=== PATIENT | female | born 1970 | race African-American/Black ===

== ENCOUNTER 2023-12-28 04:15 | Day surgery (SDC) | payer OTHER ==
[2023-12-28] MEDS ORDERED: ePHEDrine SULFATE 50 MG/1 ML AMPULE ONE (11:45)
[2023-12-28] MEDS ORDERED: ONDANSETRON 4 MG/2 ML VIAL ONE (11:45)
[2023-12-28] MEDS ORDERED: KETOROLAC TROMETHAMINE 30 MG/1 ML VIAL ONE (11:45)
[2023-12-28] MEDS ORDERED: DEXAMETHASONE SOD PHOSPHATE 4 MG/1 ML VIAL ONE (11:45)
[2023-12-28] MEDS ORDERED: MIDAZOLAM HCL 2 MG/2 ML SINGLE DOSE VIAL ONE (11:45)
[2023-12-28] MEDS ORDERED: LIDOCAINE HCL/PF 2% SDV 5ML VIAL ONE (11:45)
[2023-12-28] MEDS ORDERED: PROPOFOL 20 ML ONE (11:46)
[2023-12-28] MEDS ORDERED: ONDANSETRON 4 MG/2 ML VIAL IVPUSH PRN (12:44)
[2023-12-28] MEDS ORDERED: oxyCODONE HCL 5 MG TABLET PO PRN (12:44)
[2023-12-28] MEDS ORDERED: LACTATED RINGERS SOLUTION 1,000 ML IV SCH ×2 (12:45→14:15)
[2023-12-28] MEDS: ceFAZolin SODIUM 1 GM VIAL IVPB ONE (13:34)
[2023-12-28] MEDS ORDERED: ACETAMINOPHEN INJECTION 100 ML IVPB ONE (13:46)
[2023-12-28] MEDS ORDERED: IBUPROFEN 800 MG/8 ML IJ IVPB PRN (14:06)
[2023-12-28] MEDS ORDERED: ACETAMINOPHEN 325 MG TABLET (FP) PO PRN (14:06)
[2023-12-28] MEDS ORDERED: IBUPROFEN 600 MG TABLET (FP) PO PRN (14:06)
[2023-12-28 15:36] VITALS: RESP 18
[2023-12-28 16:56] VITALS: TEMP 97.3
[2023-12-28 17:53] VITALS: BP 133/78; PULSE 89
[2023-12-28 17:57] VITALS: BMI 30.9
[2023-12-29] MEDS ORDERED: oxyCODONE HCL 5 MG TABLET PO PRN (02:10)
== END 2023-12-28 18:31 | disposition home or self-care (01) ==
LOC: JASU-SURG 04:15
PROVIDERS: ATTEND Obstetrics & Gynecology
PROC: 0U5B8ZZ Destruction of Endometrium, Via Natural or Artificial Opening Endoscopic (ICD-10-PCS; principal; 2023-12-28 13:00)
DX: N92.0 Excessive and frequent menstruation with regular cycle (principal)
CPT/HCPCS: 88305-TC; 94760; J0131